=== PATIENT | male | born 1980 | race Asian ===

== ENCOUNTER 2021-05-11 13:49 | Outpatient (CLI) | payer OTHER | END 2021-05-11 22:25 | disposition home or self-care (01) | LOC: RAD 13:49 | PROVIDERS: ATTEND Physician Assistant | DX: M25.562 Pain in left knee (principal) ==

== ENCOUNTER 2021-05-26 09:04 | Outpatient (CLI) | payer OTHER | END 2021-05-26 19:08 | disposition home or self-care (01) | LOC: MRI 09:04 | PROVIDERS: ATTEND Physician Assistant | DX: M22.42 Chondromalacia patellae, left knee (principal) ==

== ENCOUNTER 2022-10-01 09:09 | Outpatient (CLI) | payer OTHER | END 2022-10-01 19:51 | disposition home or self-care (01) | LOC: MRI 09:09 | PROVIDERS: ATTEND Orthopaedic Surgery | DX: M22.42 Chondromalacia patellae, left knee (principal) ==